=== PATIENT | female | born 1940 | race Native Hawaiian/Other Pacific Islander ===

== ENCOUNTER 2017-08-23 15:06 | Emergency (ER) | payer MEDICARE ==
[2017-08-23 15:07] VITALS: BMI 27.4
[2017-08-23 15:25] VITALS: BP 142/72; PULSE 87; RESP 18; TEMP 98.1; O2SAT 100
--- NOTE | 2017-08-23 16:03 | ED PDOC ---
Lower Extremity Pain/Injury Time Seen by Provider: 08/23/17 15:14 Chief Complaint (Nursing): Lower Extremity Problem/Injury Chief Complaint (Provider): RIGHT toe injury History Per: Patient History/Exam Limitations: no limitations Onset/Duration Of Symptoms: Sudden Onset (last night) Additional Complaint(s): Pt stubbed toe on corner in home last night. Swelling and pain since then constant with worsening swelling and discoloration. Iced but otherwise continued normal activity today. Denies taking blood thinners or anticoagulants. Past Medical History Reviewed: Historical Data, Nursing Documentation, Vital Signs Vital Signs: Last Vital Signs Temp 98.1 F 08/23/17 15:21 Pulse 87 08/23/17 15:21 Resp 18 08/23/17 15:21 BP 142/72 08/23/17 15:21 Pulse Ox 100 08/23/17 15:21 - Medical History PMH: Denies: Arthritis, CHF, COPD, HTN, Hypercholesterolemia, Hypothyroidism, Chronic Kidney Disease, Rheumatoid Arthritis - Surgical History Surgical History: Appendectomy, Cholecystectomy - Family History Family History: States: Unknown Family Hx - Social History Current smoker - smoking cessation education provided: No - Home Medications Home Medications: Ambulatory Orders Medication Instructions Recorded Oxycodone HCl/Acetaminophen 1 tab PO Q6 PRN #12 tab 02/17/16 [Percocet 325 mg-5 mg] - Allergies Allergies/Adverse Reactions: Allergies Allergy/AdvReac Type Severity Reaction Status Date / Time tetracycline Allergy ANGIOEDEMA Verified 12/06/15 13:18 Review of Systems Constitutional: Negative for: Fever, Chills Musculoskeletal: Positive for: Foot Pain. Negative for: Leg Pain Skin: Positive for: Bruising. Negative for: Rash Physical Exam - Physical Exam Appears: Positive for: Well, No Acute Distress Head Exam: Positive for: ATRAUMATIC, NORMOCEPHALIC Extremity: Positive for: Other (RIGHT foot 4th toe: diffuse ecchymosis and edema , minimal ttp, light touch intact, no subungual hematoma.) - ECG O2 Sat by Pulse Oximetry: 100 Disposition - Clinical Impression Clinical Impression: Toe fracture - Disposition Referrals: Kong Skinner DPM [Staff Provider] - Disposition Time: 16:00 Condition: GOOD Instructions: Toe Fracture (ED) Forms: [place] [facility] (Citizen Of [place])
--- NOTE | 2017-08-23 16:53 | CP.PCM.CON ---
History of Present Illness - History of Present Illness History of Present Illness: 77 year old female was seen in the ED for right 4th digit injury. She states that last night she stubbed her toe. Since then she has been having discoloration and swelling to the digit. This morning she had pain to her right 4th digit that was allevated with tylenol. Admits to pain to the digit when walking. Denies n/v/f/c/sob/cp. Past Patient History - Past Medical History & Family History Past Medical History?: Yes - Past Social History Smoking Status: Never Smoked - CARDIAC Hx Congestive Heart Failure: No Hx Hypercholesterolemia: No Hx Hypertension: No - PULMONARY Hx Chronic Obstructive Pulmonary Disease (COPD): No - NEUROLOGICAL HX Cerebrovascular Accident: No - HEENT Hx HEENT Problems: No Other/Comment: Wears corrective lenses for reading - RENAL Hx Chronic Kidney Disease: No - ENDOCRINE/METABOLIC Hx Hypothyroidism: No - HEMATOLOGICAL/ONCOLOGICAL Hx Blood Disorders: No - INTEGUMENTARY Hx Dermatological Problems: No - MUSCULOSKELETAL/RHEUMATOLOGICAL Hx Arthritis: No Hx Rheumatoid Arthritis: No - GASTROINTESTINAL Hx Gastrointestinal Disorders: No - GENITOURINARY/GYNECOLOGICAL Hx Genitourinary Disorders: Yes (UROSEPSIS) Hx Urinary Tract Infection: Yes - PSYCHIATRIC Hx Psychophysiologic Disorder: No Hx Substance Use: No - SURGICAL HISTORY Hx Appendectomy: Yes Hx Cholecystectomy: Yes - ANESTHESIA Hx Anesthesia: Yes Hx Anesthesia Reactions: No Meds Allergies/Adverse Reactions: Allergies Allergy/AdvReac Type Severity Reaction Status Date / Time tetracycline Allergy ANGIOEDEMA Verified 12/06/15 13:18 Physical Exam - Constitutional Appears: Well, Non-toxic, No Acute Distress - Extremities Exam Additional comments: Right lower extremity focused exam: Vasc: DP and PT pulses palpable 2/4. CFT < 3 seconds to all digits. SKin temperature warm to warm from proximal to distal. Neuro: Gross sensation intact Ortho: Pain on palpation to right 4th digit Derm: Ecchymosis and edema noted to right 4th digit. Nail is intact without subungual hematoma. No open lesions noted. - Neurological Exam Neurological exam: Alert, Oriented x3 - Psychiatric Exam Psychiatric exam: Normal Affect, Normal Mood Results - Vital Signs Recent Vital Signs: Last Vital Signs Temp 98.1 F 08/23/17 15:21 Pulse 87 08/23/17 15:21 Resp 18 08/23/17 15:21 BP 142/72 08/23/17 15:21 Pulse Ox 100 08/23/17 16:11 Assessment & Plan - Assessment and Plan (Free Text) Assessment: 77 year old female with right foot 4th digit fracture Plan: patient examined and evaluated discussed in detail with attending, Dr. Solitario chart, labs, vitals reviewed radiographs reviewed: comminuted fracture of the distal phalanx of the 4th toe with surrounding soft tissue swelling right 4th digit dressed with betadine splint, marshall, and surgical shoe patient to WBAT in surgical shoe patient to follow up with Dr. Solitario in office
--- NOTE | 2017-08-23 17:21 | RAD ---
PROCEDURE: Right foot dated 08/23/2017. HISTORY: Right 4th toe injury. COMPARISON: No prior study available TECHNIQUE: Three views of the right foot performed FINDINGS: The current study reveals apparent comminuted fracture of the of the distal phalanx 4th toe with surrounding soft tissue swelling. . Remaining osseous structures intact. . Tiny posterior and plantar calcaneal enthesophytes are present. IMPRESSION: Comminuted fracture distal phalanx 4th toe with surrounding soft tissue swelling.
== END 2017-08-23 17:04 | disposition home or self-care (01) ==
LOC: H.ER 15:06
DX: S92.501A Displaced unspecified fracture of right lesser toe(s), initial encounter for closed fracture (principal); W22.8XXA Striking against or struck by other objects, initial encounter

== ENCOUNTER 2018-01-10 15:52 | Emergency (ER) | payer MEDICARE ==
[2018-01-10 15:52] VITALS: BMI 32.3
[2018-01-10 15:58] VITALS: PULSE 74; RESP 20; TEMP 98.3; O2SAT 98
--- NOTE | 2018-01-10 16:33 | RAD ---
PROCEDURE: Right Wrist Radiographs. HISTORY: trauma COMPARISON: Right wrist radiographs dated 10/30/2014. FINDINGS: BONES: No acute fracture. JOINTS: Degenerative changes. SOFT TISSUES: Dorsal wrist soft tissue swelling. OTHER FINDINGS: None. IMPRESSION: Dorsal wrist soft tissue swelling without demonstrated fracture or dislocation.
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
== END 2018-01-10 16:25 | disposition home or self-care (01) ==
LOC: H.ER 15:52
DX: S63.501A Unspecified sprain of right wrist, initial encounter (principal); W03.XXXA Other fall on same level due to collision with another person, initial encounter